=== PATIENT | male | born 1960 | race Caucasian/White ===

== ENCOUNTER 2019-10-20 11:37 | Inpatient (IN) | payer MEDICAID ==
[~2019-10-20] VITALS: Ht 162.6 cm; Wt 49.5 kg
[~2019-10-20 11:37] MED LIST: BUSP10TA23 PO; DIVA-78 PO; MIRT-92 PO; MULT-1238 PO; PARO20TA24 PO; RISP3 PO; TRAZ-252 PO
[2019-10-20] MEDS ORDERED: ZOLPIDEM TARTRATE 10 MG TABLET PO PRN (12:15)
[2019-10-20] MEDS ORDERED: HALOPERIDOL 5 MG TABLET PO PRN (12:15)
[2019-10-20] MEDS ORDERED: LORazepam 1 MG TABLET PO PRN (12:15)
[2019-10-20 12:39] VITALS: BP 123/71
[2019-10-20] MEDS: PARoxetine HCL 20 MG TABLET PO SCH (15:16)
[2019-10-20] MEDS: DIVALPROEX SODIUM 500 MG DR TABLET PO SCH (16:12)
[2019-10-20] MEDS: RisperiDONE 3 MG TABLET PO SCH (16:13)
[2019-10-20] MEDS: BusPIRone HCL 10 MG TABLET PO SCH (16:13)
[2019-10-20 16:27] VITALS: BP 107/70
[2019-10-20] MEDS: TraZODone HCL 100 MG TABLET PO SCH (20:14)
[2019-10-20] MEDS: MIRTAZAPINE 15 MG TABLET PO SCH (20:14)
[2019-10-20] MEDS: OLANZapine 7.5 MG TABLET PO SCH (20:14)
[2019-10-21 00:12] VITALS: BP 117/63
[2019-10-21] MEDS ORDERED: ALBUTEROL SULFATE HFA 90 MCG/PUFF 8 GM INHALER IH PRN (06:45)
[2019-10-21] MEDS ORDERED: DOCUSATE SODIUM 100 MG CAPSULE PO PRN (06:45)
[2019-10-21] MEDS ORDERED: OMEPRAZOLE 20 MG CAPSULE PO PRN (06:45)
[2019-10-21] MEDS ORDERED: ACETAMINOPHEN 325 MG TABLET PO PRN (06:45)
[2019-10-21] MEDS ORDERED: PETROLATUM,WHITE 28 GM JELLY TP PRN (06:45)
[2019-10-21] MEDS ORDERED: CloNIDine HCL 0.1 MG TABLET PO PRN (06:45)
[2019-10-21] MEDS ORDERED: BENZOCAINE/MENTHOL LOZENGE MM PRN (06:45)
[2019-10-21] MEDS ORDERED: MAG HYDROX/AL HYDROX/SIMETH ES 30 ML SUSPENSION UDCUP PO PRN (06:45)
[2019-10-21] MEDS ORDERED: MAGNESIUM HYDROXIDE SUSPENSION 30 ML UDCUP PO PRN (06:45)
[2019-10-21] MEDS ORDERED: IBUPROFEN 600 MG TABLET PO PRN (06:45)
[2019-10-21] MEDS ORDERED: BACITRACIN 28.4 GM OINTMENT TP PRN (06:45)
[2019-10-21] MEDS ORDERED: ONDANSETRON HCL 4 MG TABLET PO PRN (06:45)
[2019-10-21] MEDS ORDERED: LOPERAMIDE HCL 2 MG CAPSULE PO PRN (06:45)
[2019-10-21 07:36] LABS: BASOPHILS % (AUTO) 0.8 % (0.0-2.0); EOSINOPHILS % (AUTO) 1.7 % (1.0-6.0); HEMATOCRIT 37.9 % (41-53); HEMOGLOBIN 12.2 g/dL (13.5-17.5); LYMPHOCYTES # (AUTO) 1.2 K/uL (1.0-4.8); LYMPHOCYTES % (AUTO) 22.9 % (22.0-44.0); MEAN CORPUSCULAR HEMOGLOBIN 24.6 pg (26.0-34.0); MEAN CORPUSCULAR HGB CONC 32.3 G/dL (31.0-37.0); MEAN CORPUSCULAR VOLUME 76 fL (80-100); MONOCYTES # (AUTO) 0.3 K/uL (0.1-1.0); MONOCYTES % (AUTO) 5.8 % (2.0-9.0); NEUTROPHILS # (AUTO) 3.7 K/uL (1.8-7.7); NEUTROPHILS % (AUTO) 68.8 % (40.0-70.0); PLATELET COUNT (AUTO) 243 K/uL (150-450); RED BLOOD CELL COUNT(AUTO) 4.97 MIL/uL (4.50-5.90); RED CELL DISTRIBUTION WIDTH 19.6 % (11.5-14.5)
[2019-10-21 07:46] LABS: HEMOGLOBIN A1C 5.4 % (3.8-5.6)
[2019-10-21 08:04] LABS: ALANINE AMINOTRANSFERASE 26 U/L (12-78); ALBUMIN 2.8 g/dL (3.4-5.0); ALKALINE PHOSPHATASE 107 U/L (46-116); ANION GAP 8 mmol/L (8-16); ASPARTATE AMINOTRANSFERASE 23 U/L (15-37); BILIRUBIN,TOTAL 0.2 mg/dL (0.1-1.0); CALCIUM, TOTAL 8.8 mg/dL (8.8-10.5); CARBON DIOXIDE 27 mmol/L (22-29); CHLORIDE 101 mmol/L (98-107); CHOL/HDL RATIO 2.7 (4.2-7.3); CHOLESTEROL 107 mg/dL (131-200); CREATININE 0.84 mg/dL (0.60-1.30); FREE T4 (FREE THYROXINE) 1.43 ng/dL (0.76-1.46); GLOMERULAR FILTR. RATE CALC > 60 mL/min (>60); GLUCOSE,RANDOM 118 mg/dL (70-110); HDL CHOLESTEROL 39 mg/dL (40-60); LDL CHOL (CALC.) 49 mg/dL (0-130); POTASSIUM 3.5 mmol/L (3.5-5.1); SODIUM SERUM 136 mmol/L (136-145); TOTAL PROTEIN, SERUM 9.6 g/dL (6.4-8.2); TRIGLYCERIDES 97 mg/dL (15-150); UREA NITROGEN, BLOOD 15 mg/dL (7-18)
[2019-10-21 08:09] VITALS: BP 128/75
[2019-10-21] MEDS: DIVALPROEX SODIUM 500 MG DR TABLET PO SCH ×2 (08:21→16:42)
[2019-10-21] MEDS: BusPIRone HCL 10 MG TABLET PO SCH ×2 (08:21→16:42)
[2019-10-21] MEDS: RisperiDONE 3 MG TABLET PO SCH ×2 (08:21→16:42)
[2019-10-21] MEDS: PARoxetine HCL 20 MG TABLET PO SCH (08:21)
[2019-10-21 16:00] VITALS: BP 103/68
[2019-10-21] MEDS: TraZODone HCL 100 MG TABLET PO SCH (20:20)
[2019-10-21] MEDS: OLANZapine 7.5 MG TABLET PO SCH (20:20)
[2019-10-21] MEDS: MIRTAZAPINE 15 MG TABLET PO SCH (20:21)
[2019-10-22 01:07] VITALS: BP 109/55
[2019-10-22 08:02] VITALS: BP 110/65
[2019-10-22] MEDS: DIVALPROEX SODIUM 500 MG DR TABLET PO SCH ×2 (08:46→16:17)
[2019-10-22] MEDS: RisperiDONE 3 MG TABLET PO SCH ×2 (08:46→16:17)
[2019-10-22] MEDS: PARoxetine HCL 20 MG TABLET PO SCH (08:46)
[2019-10-22] MEDS: BusPIRone HCL 10 MG TABLET PO SCH ×2 (08:46→16:18)
[2019-10-22] MEDS: SULFAMETHOX/TRIMETH DS 800-160 MG/TABLET PO SCH ×2 (13:04→16:17)
[2019-10-22 16:05] VITALS: BP 107/69
[2019-10-22] MEDS: MIRTAZAPINE 15 MG TABLET PO SCH (20:16)
[2019-10-22] MEDS: OLANZapine 7.5 MG TABLET PO SCH (20:16)
[2019-10-22] MEDS: TraZODone HCL 100 MG TABLET PO SCH (20:17)
[2019-10-23 04:22] VITALS: BP 114/67
[2019-10-23 08:31] VITALS: BP 107/69
[2019-10-23] MEDS: PARoxetine HCL 20 MG TABLET PO SCH (08:58)
[2019-10-23] MEDS: RisperiDONE 3 MG TABLET PO SCH ×2 (08:58→16:19)
[2019-10-23] MEDS: MULTIVITAMINS WITH MINERALS, THERAPEUTIC TABLET PO SCH (08:58)
[2019-10-23] MEDS: BusPIRone HCL 10 MG TABLET PO SCH ×2 (08:58→16:20)
[2019-10-23] MEDS: SULFAMETHOX/TRIMETH DS 800-160 MG/TABLET PO SCH ×2 (08:58→16:19)
[2019-10-23] MEDS: DIVALPROEX SODIUM 500 MG DR TABLET PO SCH ×2 (08:58→16:19)
[2019-10-23 16:15] VITALS: BP 102/60
[2019-10-23] MEDS: TraZODone HCL 100 MG TABLET PO SCH (20:26)
[2019-10-23] MEDS: OLANZapine 7.5 MG TABLET PO SCH (20:26)
[2019-10-23] MEDS: MIRTAZAPINE 15 MG TABLET PO SCH (20:26)
[2019-10-24 04:03] VITALS: BP 107/60
[2019-10-24] MEDS: PARoxetine HCL 20 MG TABLET PO SCH (08:23)
[2019-10-24] MEDS: RisperiDONE 3 MG TABLET PO SCH ×2 (08:23→16:49)
[2019-10-24] MEDS: SULFAMETHOX/TRIMETH DS 800-160 MG/TABLET PO SCH ×2 (08:23→16:49)
[2019-10-24] MEDS: DIVALPROEX SODIUM 500 MG DR TABLET PO SCH ×2 (08:23→16:49)
[2019-10-24] MEDS: MULTIVITAMINS WITH MINERALS, THERAPEUTIC TABLET PO SCH (08:23)
[2019-10-24] MEDS: BusPIRone HCL 10 MG TABLET PO SCH ×2 (08:23→16:49)
[2019-10-24 08:35] VITALS: BP 138/83
[2019-10-24 16:05] VITALS: BP 101/64
[2019-10-24] MEDS: OLANZapine 7.5 MG TABLET PO SCH (20:32)
[2019-10-24] MEDS: TraZODone HCL 100 MG TABLET PO SCH (20:32)
[2019-10-24] MEDS: MIRTAZAPINE 15 MG TABLET PO SCH (20:32)
[2019-10-25 00:47] VITALS: BP 108/60
[2019-10-25 08:34] VITALS: BP 121/77
[2019-10-25] MEDS: RisperiDONE 3 MG TABLET PO SCH ×2 (08:35→17:03)
[2019-10-25] MEDS: BusPIRone HCL 10 MG TABLET PO SCH ×2 (08:35→17:03)
[2019-10-25] MEDS: DIVALPROEX SODIUM 500 MG DR TABLET PO SCH ×2 (08:35→17:03)
[2019-10-25] MEDS: PARoxetine HCL 20 MG TABLET PO SCH (08:35)
[2019-10-25] MEDS: MULTIVITAMINS WITH MINERALS, THERAPEUTIC TABLET PO SCH (08:35)
[2019-10-25] MEDS: SULFAMETHOX/TRIMETH DS 800-160 MG/TABLET PO SCH ×2 (08:36→17:06)
[2019-10-25 16:10] VITALS: BP 121/77
[2019-10-25] MEDS: MIRTAZAPINE 15 MG TABLET PO SCH (21:13)
[2019-10-25] MEDS: TraZODone HCL 100 MG TABLET PO SCH (21:13)
[2019-10-25] MEDS: OLANZapine 7.5 MG TABLET PO SCH (21:13)
[2019-10-26 00:25] VITALS: BP 122/78
[2019-10-26 08:20] VITALS: BP 113/82
[2019-10-26] MEDS: PARoxetine HCL 20 MG TABLET PO SCH (08:33)
[2019-10-26] MEDS: RisperiDONE 3 MG TABLET PO SCH ×2 (08:33→17:11)
[2019-10-26] MEDS: BusPIRone HCL 10 MG TABLET PO SCH ×2 (08:33→17:11)
[2019-10-26] MEDS: SULFAMETHOX/TRIMETH DS 800-160 MG/TABLET PO SCH ×2 (08:33→17:16)
[2019-10-26] MEDS: MULTIVITAMINS WITH MINERALS, THERAPEUTIC TABLET PO SCH (08:33)
[2019-10-26] MEDS: DIVALPROEX SODIUM 500 MG DR TABLET PO SCH ×2 (08:33→17:11)
[2019-10-26 16:02] VITALS: BP 113/74
[2019-10-26] MEDS: TraZODone HCL 100 MG TABLET PO SCH (21:43)
[2019-10-26] MEDS: MIRTAZAPINE 15 MG TABLET PO SCH (21:43)
[2019-10-26] MEDS: OLANZapine 7.5 MG TABLET PO SCH (21:43)
[2019-10-27 00:36] VITALS: BP 100/60
[2019-10-27] MEDS: SULFAMETHOX/TRIMETH DS 800-160 MG/TABLET PO SCH ×2 (08:16→16:14)
[2019-10-27] MEDS: MULTIVITAMINS WITH MINERALS, THERAPEUTIC TABLET PO SCH (08:16)
[2019-10-27] MEDS: DIVALPROEX SODIUM 500 MG DR TABLET PO SCH ×2 (08:16→16:14)
[2019-10-27] MEDS: RisperiDONE 3 MG TABLET PO SCH ×2 (08:16→16:14)
[2019-10-27] MEDS: BusPIRone HCL 10 MG TABLET PO SCH ×2 (08:16→16:14)
[2019-10-27] MEDS: PARoxetine HCL 20 MG TABLET PO SCH (08:16)
[2019-10-27 08:17] VITALS: BP 118/83
[2019-10-27 16:03] VITALS: BP 125/73
[2019-10-27] MEDS: MIRTAZAPINE 15 MG TABLET PO SCH (20:31)
[2019-10-27] MEDS: TraZODone HCL 100 MG TABLET PO SCH (20:31)
[2019-10-27] MEDS: OLANZapine 7.5 MG TABLET PO SCH (20:31)
[2019-10-28 00:35] VITALS: BP 119/69
[2019-10-28 08:24] VITALS: BP 121/74
[2019-10-28] MEDS: SULFAMETHOX/TRIMETH DS 800-160 MG/TABLET PO SCH (08:50)
[2019-10-28] MEDS: RisperiDONE 3 MG TABLET PO SCH (08:50)
[2019-10-28] MEDS: PARoxetine HCL 20 MG TABLET PO SCH (08:50)
[2019-10-28] MEDS: BusPIRone HCL 10 MG TABLET PO SCH (08:50)
[2019-10-28] MEDS: MULTIVITAMINS WITH MINERALS, THERAPEUTIC TABLET PO SCH (08:50)
[2019-10-28] MEDS: DIVALPROEX SODIUM 500 MG DR TABLET PO SCH (08:50)
[2019-10-28] MEDS ORDERED: SULF1TAB42 PO (10:15)
[2019-10-28] MEDS ORDERED: OLAN7.5T2 PO (10:15)
== END 2019-10-28 13:05 | disposition home or self-care (01) | DRG 750 ==
LOC: B2S 13:24
PROVIDERS: ADMIT Psychiatry & Neurology Psychiatry; ATTEND Psychiatry & Neurology Psychiatry
DX: F25.9 Schizoaffective disorder, unspecified (principal); R45.851 Suicidal ideations; F10.10 Alcohol abuse, uncomplicated; Z72.0 Tobacco use; Z85.828 Personal history of other malignant neoplasm of skin
CPT/HCPCS: 83036; 84439; 84443; 87070; 87205

== ENCOUNTER 2022-06-21 20:06 | Emergency (ER) | payer MEDICAID, OTHER ==
[~2022-06-21] VITALS: Ht 162.6 cm; Wt 49.5 kg
[~2022-06-21 20:06] MED LIST changes: +DIVA-112 PO; -DIVA-78 PO; +MIRT-89 PO; -MIRT-92 PO; -MULT-1238 PO; +OLAN7.5T22 PO; +PARO-38 PO; -PARO20TA24 PO; -RISP3 PO; +RISP3TAB35 PO; +SULF1TAB42 PO
[2022-06-21 21:35] LABS: BASOPHILS % (AUTO) 0.3 % (0.0-2.0); EOSINOPHILS % (AUTO) 3.6 % (1.0-6.0); HEMATOCRIT 45.7 % (41-53); HEMOGLOBIN 15.1 g/dL (13.5-17.5); LYMPHOCYTES # (AUTO) 0.8 K/uL (1.0-4.8); LYMPHOCYTES % (AUTO) 13.7 % (22.0-44.0); MEAN CORPUSCULAR HGB CONC 33.1 G/dL (31.0-37.0); MEAN CORPUSCULAR VOLUME 91 fL (80-100); MONOCYTES # (AUTO) 0.5 K/uL (0.1-1.0); MONOCYTES % (AUTO) 7.8 % (2.0-9.0); NEUTROPHILS # (AUTO) 4.5 K/uL (1.8-7.7); NEUTROPHILS % (AUTO) 74.6 % (40.0-70.0); PLATELET COUNT (AUTO) 240 K/uL (150-450); RED BLOOD CELL COUNT(AUTO) 5.04 MIL/uL (4.50-5.90); RED CELL DISTRIBUTION WIDTH 15.6 % (11.5-14.5)
[2022-06-21 21:51] LABS: ALANINE AMINOTRANSFERASE 51 U/L (12-78); ALBUMIN 3.4 g/dL (3.4-5.0); ALKALINE PHOSPHATASE 70 U/L (46-116); ANION GAP 12 mmol/L (8-16); ASPARTATE AMINOTRANSFERASE 45 U/L (15-37); BILIRUBIN,TOTAL 0.2 mg/dL (0.1-1.0); CALCIUM, TOTAL 8.2 mg/dL (8.8-10.5); CARBON DIOXIDE 27 mmol/L (22-29); CHLORIDE 105 mmol/L (98-107); CREATININE 0.81 mg/dL (0.60-1.30); GLOMERULAR FILTR. RATE CALC > 60 mL/min (>60); GLUCOSE,RANDOM 98 mg/dL (70-110); LIPASE 70 U/L (73-393); POTASSIUM 3.3 mmol/L (3.5-5.1); SODIUM SERUM 144 mmol/L (136-145); TOTAL PROTEIN, SERUM 7.8 g/dL (6.4-8.2); UREA NITROGEN, BLOOD 11 mg/dL (7-18)
[2022-06-22 02:00] VITALS: BP 118/66
== END 2022-06-22 05:17 | disposition home or self-care (01) ==
LOC: EMS 06-22 00:41
DX: F10.229 Alcohol dependence with intoxication, unspecified (principal); F25.9 Schizoaffective disorder, unspecified; F41.9 Anxiety disorder, unspecified; J45.909 Unspecified asthma, uncomplicated; F32.A Depression, unspecified; F17.210 Nicotine dependence, cigarettes, uncomplicated; Z98.890 Other specified postprocedural states; Y90.1 Blood alcohol level of 20-39 mg/100 ml
CPT/HCPCS: 80053; 83690; 84484; 85025; 36415; 99283; G0480